=== PATIENT | male | born 1945 | race Caucasian/White ===

== ENCOUNTER 2018-02-04 10:49 | Outpatient (CLI) | payer MEDICARE, OTHER ==
[~2018-02-04] VITALS: Ht 193 cm; Wt 100.0 kg
--- NOTE | ~2018-02-04 | HEMODYNAMI ---
PATIENT:TERRY YUAN MEDICAL RECORD: [id number] : 41 LOCATION:[facility] ADMISSION DATE: 02/04/18 Generatedon:02/04/201815:29 Patient name: TERRY YUAN Patient #: [id number] SSN: : 1945 Date of study: 02/04/2018 Page: Of Hemodynamic Procedure Report Patient Data Patient Demographics Procedure consent was obtained First Name: TERRY Gender: Male Last Name: KWABENA : 1945 Middle Initial: R Age: 72 year(s) Patient #: [id number] Race: Unknown Additional ID: [id number] Contact details Address: [address] [place] [address] DRIVE State: [place] City: [place] Zip code: [address] Past Medical History Allergies: No known allergies Admission Admission Data Admission Date: 02/04/2018 Admission Time: 10:49 Lab Results Lab Result Date: 02/04/2018 Lab Result Time: 0:00 Biochemistry Name Units Result Min Max BUN mg/dl 12 --(-*--)-- 7 18 Creatinine mg/dl 1.2 --(---*)-- 0.6 1.3 CBC Name Units Result Min Max Hemoglobin g/dl 11.9 *-(----)-- 13.5 17.5 Procedure Procedure Types Cath Procedure Diagnostic Procedure LHC LHC w/Coronaries w/Grafts Sedation Charges Moderate Sedation up to 30 minutes PCI Procedure PTCA PTCA Initial Procedure Description Procedure Date Procedure Date: 02/04/2018 Procedure Start Time: 14:35 Procedure End Time: 15:26 Procedure Staff Name Function Srikanth Donaldson MD Performing Physician Rylnad Law RT Monitor Judy Nichole RT Scrub Arabella Read RN Nurse Procedure Data Cath Procedure Fluoroscopy Diagnostic fluoroscopy Total fluoroscopy Time: time: 15.2 min 15.2 min Diagnostic fluoroscopy Total fluoroscopy dose: dose: 1773 mGy 1773 mGy Contrast Material Contrast Material Type Amount (ml) Isovue 300 144 Entry Location Entry Primary Successful Side Size Upsize Upsize Entry Closure Succes sful Closure Location (Fr) 1 (Fr) 2 (Fr) Remarks Device Remarks Femoral Right 5 Fr 6 Fr Exoseal artery Short Estimated blood loss: 10 ml Diagnostic catheters Device Type Used For End Catheter Placement MULTIPACK JL 4.0 5Fr Procedure catheter MULTIPACK 3DRC 5Fr Procedure catheter MULTIPACK Pigtail 5 Fr Procedure catheter Procedure Complications No complications Procedure Medications Medication Administration Route Dosage Oxygen NC 2 l/min Lidocaine 2% added to field 20 Heparin Flush Bag added to field 2 bags (1000units/500ml NS) 0.9% NaCl I.V. 100 ml/hr Versed I.V. 1 mg Fentanyl I.V. 50 mcg Versed I.V. 1 mg Fentanyl I.V. 50 mcg Heparin Bolus I.V. 4000 units Integrilin (Bolus I.V. 9 ml 2mg/ml) Versed I.V. 1 mg Hemodynamics Rest HGB: 11.9 (g/dl) Heart Rate: 53 (bpm) Pressure Samples Time Site Value (mmHg) Purpose Heart Use Rate(bpm) 14:44 LV 159/9,13 Snapshot 57 14:45 AO 147/70(102) Pullback 63 14:45 LV 152/13,15 Pullback 63 Gradients Valve Time Site 1 Site 2 Mean SEP/DFP Peak To Heart Use (mmHg) (sec/min) Peak Rate (mmHg) (bpm) Aortic 14:45 LV AO 4 17 5 63 152/13,15 147/70(102) Calculations Valve P-P Mean Valve Index Valve Source Name Gradient Area Flow (cm2) Aortic 5 4 5 4 Snapshots Pre Cath Intra NCS Post Cath Vital Signs Time Heart Resp SPO2 etCO2 NIBP (mmHg) Rhythm Pain Sedation Rate (ipm) (%) (mmHg) Status Level (bpm) 14:32:46 50 15 100 33.7 178/93(154) NSR 0 (11) 10(A) , No pain 14:37:29 67 12 96 23.9 163/88(137) NSR 0 (11) 10(A) , No pain 14:42:14 60 14 97 0 157/87(131) NSR 0 (11) 10(A) , No pain 14:47:35 50 15 97 20 142/75(126) NSR 0 (11) 9(A) , No pain 14:52:20 61 13 98 25.4 146/75(125) NSR 0 (11) 9(A) , No pain 14:57:03 61 14 100 32.9 147/86(126) NSR 0 (11) 9(A) , No pain 15:01:45 60 14 98 11.9 144/84(126) NSR 0 (11) 9(A) , No pain 15:06:30 50 15 98 27.6 145/78(116) NSR 0 (11) 9(A) , No pain 15:11:06 48 14 99 26.9 131/74(103) NSR 0 (11) 10(A) , No pain 15:15:47 60 13 99 28.4 143/86(130) NSR 0 (11) 10(A) , No pain 15:20:32 50 99 28.4 148/79(113) NSR 0 (11) 10(A) , No pain 15:25:17 51 0 100 32.9 148/85(122) NSR 0 (11) 10(A) , No pain Medications Time Medication Route Dose Verified Delivered Reason Notes Effectiveness by by 14:23:37 Oxygen NC 2 Srikanth Buffie used for l/min St Nasim Read RN procedure 14:23:44 Lidocaine 2% added 20ml Srikanth Srikanth for local to vial [facility] anesthetic field MD [place] 14:23:50 Heparin Flush added 2 Srikanth Srikanth used for Bag to bags [facility] procedure (1000units/500ml field MD [place] NS) 14:23:59 0.9% NaCl I.V. 100 Srikanth Moie Per physician ml/hr St Nasim Read RN, MD 14:35:55 Fentanyl I.V. 50 Srikanth Buffie for sedation mcg [facility] Nasim Read RN, MD 14:36:49 Versed I.V. 1 mg Srikanth Buffie for sedation St Nasim Read RN, MD 14:45:39 Versed I.V. 1 mg Srikanth Buffie for sedation St Nasim Read RN, MD 14:45:43 Fentanyl I.V. 50 Srikanth Buffie for sedation mcg [facility] Nasim Read RN, MD 14:52:02 Heparin Bolus I.V. 4000 Srikanth Buffie for verifi ed units [facility] Nasim Read RN anticoagulation with dr MD talavera 14:53:12 Integrilin I.V. 9 ml Srikanth Bell for wasted 1 (Bolus 2mg/ml) St Nasim Read RN antiplatelet ml of MD therapy vial 14:57:47 Versed I.V. 1 mg Srikanth Bell for sedation St Nasim Read RN, MD Procedure Log Time Note 14:10:49 Arabella Read RN sent for patient. Start room use. 14:10:50 Time tracking: Regular hours (M-F 7:00 - 5:00) 14:10:53 Plan of Care:Hemodynamics will remain stable., Cardiac rhythm will remain stable., Comfort level will be maintained., Respiratory function will remain adequate., Patient/ family verbilizes understanding of procedure., Procedure tolerated without complication., Recovers from procedure without complications.. 14:10:54 Signed procedure consent form obtained from patient. 14:11:23 H&P Date Dictated: 01/08/2018 Within 30 days and on chart., H&P Addendum completed by physician on day of procedure. (MUST COMPLETE FOR ALL OUTPATIENTS). 14:13:36 Patient allergic to No known allergies 14:13:57 Lab Result : BUN 12 mg/dl 14:13:57 Lab Result : Hemoglobin 11.9 g/dl 14:13:57 Lab Result : Creatinine 1.2 mg/dl 14:17:50 Patient received from Pre/Post Procedure Room to [facility] Alert and oriented. Tansferred to table in Supine position. 14:17:51 Warm blankets applied, and ramin hugger turned on for patient comfort. 14:17:51 Correct patient and procedure confirmed by team. 14:17:52 ECG and BP/O2 sat monitors applied to patient. 14:23:37 Oxygen 2 l/min NC was administered by Arabella Read RN; used for procedure; 14:23:44 Lidocaine 2% 20ml vial added to field was administered by Srikanth Donaldson MD; for local anesthetic; 14:23:50 Heparin Flush Bag (1000units/500ml NS) 2 bags added to field was administered by Srikanth Donaldson MD; used for procedure; 14:23:59 0.9% NaCl 100 ml/hr I.V. was administered by Arabella Read RN; Per physician; 14:31:10 Vital chart was started 14:31:11 Baseline sample Acquired. 14:31:13 Rhythm: sinus rhythm 14:31:15 Full Disclosure recording started 14:31:15 Pre-procedure instructions explained to patient. 14:31:16 Pre-op teaching completed and patient verbalized understanding. 14:31:17 Family in waiting room. 14:31:21 Patient NPO since Breakfast. 14:31:24 Is the patient allergic to Iodine/contrast media? No. 14:31:26 Is patient on blood thinner?Yes 14:31:30 Patient diabetic? No. 14:31:35 Previous problem with sedation/anesthesia? No ? 14:31:47 Snore? Yes 14:31:47 Sleep apnea? No 14:31:49 Deviated septum? No 14:31:49 Opens mouth fully? Yes 14:31:51 Sticks out tongue? Yes 14:31:53 Airway obstruction? No ? 14:31:57 Dentures? Yes in tight 14:32:02 Pre procedure: right posterior tibial pulse 2+ Normal; easily identifiable; not easily obliterated 14:32:04 Patient pain scale 0/10 ?. 14:32:08 IV patent on arrival in left forearm with 0.9% NaCl at [facility] 14:32:10 Lab results completed and on chart. 14:32:12 Right groin area was prepped with chlora-prep and draped in sterile fashion 14:32:13 Alarms reviewed by R. N. 14:32:13 Sharps counted by scrub and verified by R.N. 14:32:15 Use device set Femoral Dx 14:32:16 ACIST Syringe (94749) opened to sterile field. 14:32:16 Bag Decanter (2002) opened to sterile field. 14:32:18 ACIST Hand Control (74407) opened to sterile field. 14:32:19 ACIST Manifold (70225) opened to sterile field. 14:32:20 Tegaderm 4 x 4 (1626W) opened to sterile field. 14:32:21 SHEATH Prelude 5Fr 0.035 (OKL-8F-87-035) opened to sterile field. 14:32:22 Medline Cath Pack ([id number]) opened to sterile field. 14:32:23 DIAGNOSTIC WIRE .035 260cm J wire (955218) opened to sterile field. 14:32:24 DIAGNOSTIC Multipack 5Fr catheter set (JL1486) opened to sterile field. 14:33:40 Physician arrived 14:33:41 --------ALL STOP TIME OUT------ 14:33:41 Final Timeout: patient, procedure, and site verified with staff and physician. All members of the team are in agreement. 14:33:42 Right groin site verified by team. 14:33:44 Physical assessment completed. ASA score P 2 - A patient with mild systemic disease as per Srikanth Donaldson MD. 14:33:46 Sedation plan: IV Moderate Sedation Medication:Versed, Fentanyl 14:35:50 Local anesthetic to right femoral artery with Lidocaine 2% by Srikanth Donaldson MD.INITIAL ACCESS ONLY 14:35:55 Fentanyl 50 mcg I.V. was administered by Arabella Read RN; for sedation; 14:36:45 Zero performed for pressure channel P1 14:36:49 Versed 1 mg I.V. was administered by Arabella Read RN; for sedation; 14:38:47 Procedure started. 14:38:58 A 5 Fr sheath was inserted into the Right Femoral artery 14:39:43 A MULTIPACK JL 4.0 5Fr catheter was advanced over the wire and used for Procedure. 14:41:12 Catheter exchanged over wire. 14:41:18 A MULTIPACK 3DRC 5Fr catheter was advanced over the wire and used for Procedure. 14:41:55 RCA angiography performed. 14:42:10 SVG to LAD angiography performed. 14:43:36 MAYES to LAD angiography performed. 14:43:45 Catheter exchanged over wire. 14:43:50 A MULTIPACK Pigtail 5 Fr catheter was advanced over the wire and used for Procedure. 14:44:56 LV gram done using PRATT 14:45:01 Injector settings: Ml/sec: 10, Volume: 20, 14:45:12 EF : 40 % 14:45:15 LV hemodynamics recorded. 14:45:26 Aortic Root visualized 14:45:39 Versed 1 mg I.V. was administered by Arabella Read RN; for sedation; 14:45:43 Fentanyl 50 mcg I.V. was administered by Arabella Read RN; for sedation; 14:47:30 SHEATH Prelude 6Fr 0.035 (HUD-7N-52-035) opened to sterile field. 14:47:41 INFLATOR Merit BasixCompak (HN4331) opened to sterile field. 14:47:45 WHISPER 300cm guide wire ([id number]) opened to sterile field. 14:48:53 Catheter removed. 14:48:59 Sheath upsized to a 6 Fr Short. 14:49:25 GUIDE 6FR JL 4.0 catheter (DQ1OT95) opened to sterile field. 14:49:34 6 Fr jl 4 guide catheter was inserted over the wire 14:50:30 Guide Catheter removed. unable to cannulate vessel. 14:50:38 GUIDE 6FR JL 5.0 catheter (AP2OR66) opened to sterile field. 14:52:02 Heparin Bolus 4000 units I.V. was administered by Arabella Read RN; for anticoagulation; verified with dr talavera 14:52:27 whisper wire advanced. 14:53:12 Integrilin (Bolus 2mg/ml) 9 ml I.V. was administered by Arabella Read RN; for antiplatelet therapy; wasted 1 ml of vial 14:55:51 Quick Combo opened to sterile field. 14:56:17 Quick combo pads placed on patients chest and back. 14:56:39 Wire removed. unable to get back-up support 14:56:42 Guide Catheter removed. unable to get back-up support 14:57:10 6 Fr jl 4 guide catheter was inserted over the wire 14:57:47 Versed 1 mg I.V. was administered by Arabella Read RN; for sedation; 14:57:54 Guide Catheter removed. unable to cannulate vessel. 14:58:48 GUIDE 6FR EBU 3.5 catheter ([id number]) opened to sterile field. 14:59:00 6 Fr ebu 3.5 guide catheter was inserted over the wire 14:59:34 whisper wire advanced. 15:00:54 Wire removed. damaged. 15:01:04 WHISPER 300cm guide wire ([id number]) opened to sterile field. 15:01:43 whisper wire advanced. 15:01:44 Wire advanced across lesion. 15:02:10 The INTEGRITY OTW 4.0 X 18 stent ([id number]) was advanced then removed because of failure to cross lesion 15:04:58 The EMERGE OTW 3.0 x 15 balloon ([id number]) was advanced and then removed because of failure to cross lesion 15:07:54 The EMERGE OTW 2.0 x 15 balloon ([id number]) was advanced and then removed because of failure to cross lesion 15:12:29 WHISPER 300cm guide wire ([id number]) opened to sterile field. 15:12:44 whisper wire advanced as a jacky wire. 15:13:33 Inflate balloon Inflation number: 1 A EMERGE OTW 1.5 x 15 balloon ([id number]) was prepped and advanced across the Prox CX, then inflated to 10 PETER for 0:30 (min:sec). 15:14:00 Wire removed. 15:14:37 Balloon removed over the wire. 15:14:39 Wire removed. 15:14:39 Guide catheter removed. 15:15:05 EXOSEAL 6Fr (EX600) opened to sterile field. 15:15:57 Procedure ended.(Physican Out) 15:16:05 Sheath removed intact; hemostasis achieved with Exoseal to the Right Femoral artery. 15:16:12 Fluoroscopy time 15.20 minutes. 15:16:18 Flurop Dose total: 1773 15:16:18 Fluoroscopy dose: 1773 mGy 15:16:31 Contrast amount:Isovue 300 144ml. 15:19:45 have pt restart warfarin today 15:21:37 Insertion/operative site no bleeding no hematoma. 15:21:40 Post-op/insertion site Right Femoral artery dressed using a 4 x 4 and Tegaderm. 15:21:46 Post right femoral artery:stable, soft, clean and dry 15:21:49 Post Procedure Pulses reassessed and unchanged 15:21:52 Post-procedure physical assessment completed. ASA score P 2 - A patient with mild systemic disease as per Srikanth Donaldson MD. 15:21:54 Post procedure rhythm: unchanged. 15:21:56 Estimated blood loss: 10 ml 15:21:57 Post procedure instruction explained to patient.Patient verbalizes understanding. 15:23:15 Patient needs reinforcement of post procedure teaching. 15:23:32 Procedure type changed to Cath procedure, Diagnostic procedure, LHC, LHC w/Coronaries w/Grafts, Sedation Charges, Moderate Sedation up to 30 minutes, PCI procedure, PTCA, PTCA Initial 15:26:13 Procedure and supply charges have been captured, reviewed, submitted and are correct. 15:26:19 Procedure Complication : No complications 15::22 Vital chart was stopped 15:26:23 See physician's report for complete and final results. 15:26:24 Report given to Pre/Post Procedure Room. 15::25 Patient transfered to Pre/Post Procedure Room with Stretcher. 15::26 Procedure ended. 15:: Full Disclosure recording stopped 15:26:36 End room use (Document Last) Intervention Summary Intervention Notes Time ActionType Lesion and Equipment Action# Pressure Duration Attributes Used 15:02:10 Discard INTEGRITY Stent OTW 4.0 X 18 stent ([id number]) 15:04:58 Discard EMERGE OTW Balloon 3.0 x 15 balloon ([id number]) 15:07:54 Discard EMERGE OTW Balloon 2.0 x 15 balloon ([id number]) 15:13:33 Inflate Prox CX EMERGE OTW 1 10 00:30 balloon 1.5 x 15 balloon ([id number]) Device Usage Item Name Manufacture Quantity Catalog Number Hospital Part Current Minimal Lot# / Charge Number Stock Stock Serial# Code ACIST Syringe Acist 1 52114 111552 526691 866505 20 (67249) [employer] Bag Decanter Microtek 1 2002S 344422 19528 297851 5 (2002S) Medical Inc. ACIST Hand Acist 1 96104 380772 780048 045763 5 Control (72791) [employer] Inc ACIST Manifold Acist 1 65682 169426 425511 830525 5 (66357) [employer] Inc Tegaderm 4 x 4 3M 1 1626W 966006 378091 520686 5 (1626W) SHEATH Prelude Merit 1 VPA-0L-35-035 365001 017134 212542 5 5Fr 0.035 Medical (HEB-5H-55-035) Medline Cath Cardinal 1 [id number] 334474 31496 481952 5 Pack Health ([id number]) DIAGNOSTIC WIRE [facility] 1 592426 545578 784314 664697 30 .035 260cm J wire (388922) DIAGNOSTIC Cardinal 1 YR6022 050359 09228 589400 30 Multipack 5Fr Health catheter set ([id number]) MULTIPACK JL Cardinal 1 980802 5 4.0 5Fr Health catheter MULTIPACK 3DRC Cardinal 1 885735 5 5Fr catheter Health MULTIPACK Cardinal 1 270289 5 Pigtail 5 Fr Health catheter SHEATH Prelude Merit 1 URE-0T-42-35 516363 5529285 778752 5 6Fr 0.035 Medical (JCQ-5W-90-035) INFLATOR Merit Merit 1 ZX9481 735105 912894 771277 15 [facility] (OS5587) WHISPER 300cm Arzola 3 [id number] 794393 491189 300779 5 guide wire Vascular ([id number]) GUIDE 6FR JL Medtronic 1 QF3PF94 138671 75840 775332 1 4.0 catheter (KO7MT56) GUIDE 6FR JL Medtronic 1 BZ4EN19 260450 23698 453509 1 5.0 catheter (GV2HI79) [employer]es 1 71558-668645 537451 189726 043302 5 GUIDE 6FR EBU Medtronic 1 IV7QMY59 330401 87838 011774 3 3.5 catheter (RQ4BDA26) INTEGRITY OTW Medtronic 1 [id number] 537952 449727 9 [id number] 4.0 X 18 stent ([id number]) EMERGE OTW 3.0 [place] 1 [id number] 771215 881037 830415 5 [id number] x 15 balloon Scientific ([id number]) EMERGE OTW 2.0 [place] 1 [id number] 567445 976498 349528 5 [id number] x 15 balloon Scientific ([id number]) EMERGE OTW 1.5 [place] 1 [id number] 952066 632208 777439 5 [id number] x 15 balloon Scientific ([id number]) EXOSEAL 6Fr Cardinal 1 EX600 502373 977803 301751 10 (EX600) Health Signature Audit [place] Stage Time Signature Unsigned Intra-Procedure 02/04/2018 Ryland Law 3:29:43 PM RT(R) Signatures Monitor : Ryland Law RT Signature : Date : Time : [place] [id number] [place] [address]
--- NOTE | ~2018-02-04 | OP ---
PATIENT NAME: TERRY GALLARDO MEDICAL RECORD: [id number] :41 LOCATION:D.CAT ADMISSION DATE: SURGEON: HIEN RENEE MD DATE OF OPERATION: 02/04/2018 PROCEDURE: Left heart catheterization, selective coronary angiography, right femoral artery approach. CATHETERS: A 5-Latvian sheath, 5/4 left and right Ghada, 5/4 pig. The procedure was well tolerated. The patient returned to the gallardo. Sheath removed. ExoSeal device placed. FINDINGS: Left ventriculography in 30 degrees PRATT view shows mild global hypokinesis with overall LV function reduced. Estimated EF 40%. CORONARY ANATOMY: LEFT MAIN: Left main is free of disease. LAD: Fills for a period of time then is totally occluded. CIRCUMFLEX: Left dominant system with a tight stenosis before takeoff of a large OM of 80% to 90%. RIGHT CORONARY ARTERY: The right coronary artery is a nondominant system. It basically is subtotaled and fills via right to right collaterals. Saphenous graft is diffusely to severely diseased saphenous graft to the LAD. No other grafts are noted. Selective MAYES injection was performed and this showed no attachment to any coronary arteries. After 5-Latvian sheath was exchanged for a 6-Latvian sheath, we attempted PTCA stenting to the left dominant circumflex. Despite going down to 1.5 balloon and jacky wire, we were unable to cross the lesion. Given the diffuse disease of the saphenous graft to the LAD as well as reasonable targets on the circumflex system, the procedure was stopped at this point for possible second coronary bypass grafting. TRANSINT:[id number] Voice Confirmation ID: [id number] DOCUMENT ID: [id number] HIEN RENEE MD at 0849 CC: [id number] DICTATION DATE: 02/04/18 1522 DIRECTOR PRESALES: 02/04/18 1617 DEP CLI 02/04/18 [place] [id number] [place] [id number]
[2018-02-04] MEDS ORDERED: BAYER CHEWABLE81 MG PO (11:19)
[2018-02-04] MEDS ORDERED: COUMADIN7.5 MG PO (11:20)
[2018-02-04] MEDS ORDERED: FISH OIL 1,0001 CA1 PO (11:20)
[2018-02-04] MEDS ORDERED: SYNTHROID112 MCG PO (11:20)
[2018-02-04 11:25] VITALS: BP 168/89; Ht 193 cm; Wt 100.0 kg
[2018-02-04 12:09] LABS: BASOPHILS 0.8 % (0-2); EOSINOPHILS 11.8 % (0-7); HEMATOCRIT 36.2 % (42.0-54.0); HEMOGLOBIN 11.9 g/dL (13.5-17.5); IMMATURE GRANULOCYTES 0.2 % (0-5); LYMPHOCYTES 25.7 % (15-50); MCHC 32.9 g/dL (31.0-37.0); MCV 88.3 fL (80.0-100.0); MEAN PLATELET VOLUME 9.3 fL (7.4-10.4); MONOCYTES 7.9 % (2-11); NEUTROPHILS 53.6 % (40-80); PLATELET COUNT 151 10x3/uL (130-400); RDW 13.8 % (11.5-14.5); WBC 4.8 10x3/uL (4.8-10.8)
[2018-02-04 12:17] LABS: INR 1.1 (0.85-1.17); PROTIME 13.8 SECONDS (11.6-15.0)
[2018-02-04 12:35] LABS: ANION GAP 9.2 mmol/L (8-16); CARBON DIOXIDE 28.8 mmol/L (21.0-32.0)
[2018-02-04 13:05] LABS: CALCIUM 8.9 mg/dL (8.5-10.1); CREATININE - SERUM 1.2 mg/dL (0.6-1.3)
== END 2018-02-04 17:45 | disposition home or self-care (01) ==
LOC: D.CATH 10:49
PROVIDERS: Internal Medicine Interventional Cardiology
DX: I25.119 Atherosclerotic heart disease of native coronary artery with unspecified angina pectoris (principal); I25.719 Atherosclerosis of autologous vein coronary artery bypass graft(s) with unspecified angina pectoris; I25.82 Chronic total occlusion of coronary artery; Z01.812 Encounter for preprocedural laboratory examination

== ENCOUNTER 2018-02-26 07:24 | Inpatient (IN) | payer MEDICARE, OTHER ==
[~2018-02-26] VITALS: Ht 193 cm; Wt 126.8 kg
--- NOTE | ~2018-02-26 | HP ---
PATIENT: TERRY YUAN MEDICAL RECORD: [id number] ACCOUNT: [id number] LOCATION:[facility] : 41 ADMISSION DATE: 02/26/18 HISTORY AND PHYSICAL EXAMINATION TERRY Root (73yo, M) ID# [id number]. Date/Time02/10/2018 11:33ULIPP68/21/194[facility] Dept.[facility]_[place] [facility] ClinicProviderRUBY APONTE MDInsuranceMed Primary: MEDICARE-[place] (MEDICARE) Insurance # : [id number] Referring Provider Name : MIKAELA CHEN Employer Name : NONE LISTED Med Secondary: AETNA (PPO) Insurance # : [id number] Policy/Group # : [id number] Employer Name : NONE LISTED Prescription: CMX - Member is eligible. Chief Complaint Coronary artery disease CAD-RE DO CABG (Dr. Penaloza) Patient's Care Team Referring Provider (): MIKAELA CHEN: [address] [place] [phone], , Armature Winder: HIEN RENEE MD Vitals BP:160/80 sitting L arm 02/10/2018 12:08 pm 164/86 sitting R arm 02/10/2018 12:09 pmBP Cuff Size:adult 02/10/2018 12:08 pm adult 02/10/2018 12:09 pmHR:56,reg 02/10/2018 12:09 pmHt:6 ft 4 in 02/10/2018 12:09 pmWt:218 lbs 02/10/2018 12:09 pmNotes:four months history of lightheadedness, fatigue. Some SOB with fatigue and lightheadedness. No chest pain. may work for an hour or longer before he has symptoms. 02/10/2018 12:12 pmBMI:26.5 02/10/2018 12:09 pmAllergies Reviewed Allergies LIURGNC-FQO-VHF REDUCTASE INHIBITORSMedications Reviewed Medications Aspir- enteredKathy Wilsonlevothyroxine 112 mcg uopxuf31/30/18 filledCaremarkwarfarin 5 mg alzcrt23/30/18 filledCaremarkProblems Reviewed Problems Coronary arteriosclerosis - Onset: 02/06/2018 Family History Reviewed Family History Social History Reviewed Social History Cardiology Smoking Status: Former smoker High Cholesterol: N High blood pressure: N Overweight: Y Obese: N Diabetes: N General stress level: Medium Surgical History Reviewed Surgical History HISTORY AND PHYSICAL [id number] TERRY YUAN CABG - 08/18/2000 Past Medical History Reviewed Past Medical History Coronary Artery Disease: Y - CABG x 1 2000 Hypothyroidism: Y - levothyroxine Documents for Discussion N/A Screening None recorded. HPI Fatigue Reported by patient. Quality: continuous Severity: normal sleep patterns; change in exercise habits; changes in normal activities Duration: symptoms lasting over 2 weeks Timing: worse; gradual Context: symptoms do not improve on weekends/vacations Modifying Factors: no new stressors in life; taking vitamins Associated Symptoms: no drug/alcohol withdrawal; no depression; no anxiety; no sleep disturbances; no snoring; periods of not breathing (apnea) have not been observed; no recent change in weight Notes: does lots of yard and home work symptoms have not worsened over the past several months, consistently requires 30 min or so of rest to recover when lightheadedness and fatigue set in referral for redo CABG, status post coronary bypass graft [address] Penaloza at [facility]. 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 Severe bilateral varicose veins, does not use elastic stockings ROS as noted in the HPI Physical Exam Patient is a 73-year-old male. Constitutional: General Appearance well nourished and developed and healthy-appearing. Level of Distress NAD. Ambulation ambulating normally. Cardiovascular: Apical Impulse not displaced or no thrill. Heart Auscultation no murmurs, rubs, or gallops and RRR. Arterial Pulses femoral 2+ bilateral. Edema no edema and varicosities; status post greater saphenous vein harvest left thigh, severe varicose veins below the knee on the left and moderate on the right, it easily de-compressible with elevation. Lungs: Repiratory Effort no dyspnea . Percussion no hyperresonance or dullness or flatness. Auscultation no wheezing, rhonchi, or rales / crackles and breathing sounds normal and good air movement. HISTORY AND PHYSICAL [id number] TERRY YUAN Abdomen: Bowl Sounds normal. Inspection and Palpation no tenderness or masses and soft. Musculoskeletal System: Gait And Stance normal gait and stance. Digits and Nails normal nails and no cyanosis. Joints, Bones, and Muscles normal strength and movement of all extremities. Neurologic: Cranial Nerves grossly intact. Sensation grossly intact. Lymph Nodes: Lymph Nodes no cervical LAD or supraclavicular LAD. Eyes: Lids and Conjunctivae no discharge or pallor and non-injected. Pupils PERRLA. Cornea grossly intact. EOM EOMI. Lens clear. Sclerae non-icteric. Neck: Neck no masses, enlarged lymph nodes, or carotid bruits and supple and trachea midline. Thyroid no enlargement or nodules and non-tender. Skin: Inspection and Palpation no rash, lesions, ulcers, jaundice, or abnormal nevi; healed midsternal scar. Assessment / Plan 1. Arteriosclerosis of coronary artery bypass graft I25.810: Atherosclerosis of coronary artery bypass graft(s) without angina pectoris 2. Coronary arteriosclerosis in [place] artery I25.10: Atherosclerotic heart disease of [place] coronary artery without angina pectoris 3. Generalized ischemic myocardial dysfunction I25.5: Ischemic cardiomyopathy 4. Venous insufficiency of leg I87.2: Venous insufficiency (chronic) (peripheral) Patient Instructions leg elevation 3 times a day for 45 minutes, compression hose after surgery Discussion Notes we discussed the rationale for redo coronary bypass graft, the alternatives, the risks, the benefits, and recovery. Need ultrasound evaluation of lower extremity veins stop Coumadin 5 days before surgery, check INR on preop Consent given RUBY APONTE MD at 1005 CC: [id number] DICTATION DATE: 02/10/18 1125 WAX COATING MACHINE TENDER: GAUTAM 02/13/18 1148 PRE [address] [place] [id number] [place] [address]
--- NOTE | ~2018-02-26 | HEMODYNAMI ---
PATIENT:TERRY YUAN MEDICAL RECORD: [id number] : 41 [facility] AD[facility]ION DATE: 02/27/18 Generatedon:03/10/201815:48 Patient name: TERRY YUAN Patient #: [id number] SSN: : 1945 Date of study: 03/10/2018 Page: Of Hemodynamic Procedure Report Patient Data Patient Demographics Procedure consent was obtained First Name: TERRY Gender: Male Last Name: KWABENA : 1945 [facility] Initial: R Age: 73 year(s) Patient #: [id number] Race: Unknown Additional ID: [id number] Contact details Address: [address] [place] [address] [address]IVE State: [place] City: [place] Zip code: [address] Past Medical History Allergies Allergen Reaction Date Comments Reported Statins 03/10/2018 Admission Admission Data Admission Date: 02/27/2018 Admission Time: 5:00 Room #: IZ[facility]A Lab Results Lab Result Date: 03/10/2018 Lab Result Time: 0:00 Biochemistry Name Units Result Min Max BUN mg/dl 68 --(----)-* 7 18 Creatinine mg/dl 2.6 --(----)-* 0.6 1.3 CBC Name Units Result Min Max Hemoglobin g/dl 9 *-(----)-- 13.5 17.5 Procedure Procedure Types Cath Procedure Diagnostic Procedure [facility] w/Coronaries w/Grafts Aortic Root Angiography Procedure Description Procedure Date Procedure Date: 03/10/2018 Procedure Start Time: 15:23 Procedure End Time: 15:46 Procedure Staff Name Function Srikanth Donaldson MD Performing Physician Judy Nichole RT Monitor Kanwal Castrejon RT Scrub Javy Franco RN Nurse Procedure Data Cath Procedure Fluoroscopy Diagnostic fluoroscopy Total fluoroscopy Time: 2.2 time: 2.2 min min Diagnostic fluoroscopy Total fluoroscopy dose: 404 dose: 404 mGy mGy Contrast Material Contrast Material Type Amount (ml) Isovue 300 66 Entry Location Entry Primary Successful Side Size Upsize Upsize Entry Closure Succes sful Closure Location (Fr) 1 (Fr) 2 (Fr) Remarks Device Remarks Femoral Left 5 Fr Exoseal artery Estimated blood loss: 5 ml Diagnostic catheters Device Type Used For End Catheter Placement MULTIPACK JL 4.0 5Fr Procedure catheter MULTIPACK Pigtail 5 Fr Procedure catheter Procedure Complications No complications Procedure Medications Medication Administration Route Dosage 0.9% NaCl I.V. 100 ml/hr Oxygen NC 4 l/min Heparin Flush Bag added to field 2 bags (1000units/500ml NS) Lidocaine 2% added to field 20 Hemodynamics Rest HGB: 9 (g/dl) Heart Rate: 77 (bpm) Snapshots Pre Cath Intra NCS Post Cath Vital Signs Time Heart Resp SPO2 etCO2 NIBP Rhythm Pain Sedation Rate (ipm) (%) (mmHg) (mmHg) Status Level (bpm) 15:13:41 78 21 92 0 102/70(84) NSR 0 (11) 10(A) , No pain 15:17:51 81 24 92 0 107/67(87) NSR 0 (11) 10(A) , No pain 15:21:55 79 18 87 0 100/74(82) NSR 0 (11) 10(A) , No pain 15:25:59 80 19 93 0 102/74(84) NSR 0 (11) 10(A) , No pain 15:30:04 81 24 92 0 100/74(87) NSR 0 (11) 10(A) , No pain 15:34:12 82 28 93 0 94/67(88) NSR 0 (11) 10(A) , No pain 15:39:11 85 26 92 0 Measuring NSR 0 (11) 10(A) , No pain 15:40:13 83 18 91 0 103/75(85) NSR 0 (11) 10(A) , No pain 15:44:20 84 24 88 0 101/72(87) NSR 0 (11) 10(A) , No pain Medications Time Medication Route Dose Verified Delivered Reason Notes Effe ctiveness by by 15:13:26 0.9% NaCl I.V. 100 Javy Javy Per ml/hr Joan oliva RN RN 15:13:41 Oxygen NC 4 Javy Javy Per l/min Joan oliva RN RN 15:13:53 Heparin Flush added 2 Javy Javy used for Bag to bags Joan Franco procedure (1000units/500ml field RN RN NS) 15:14:05 Lidocaine 2% added 20ml Javy Javy for local to vial Joan Franco anesthetic field RN plumbing engineer Log Time Note 14:55:04 Time tracking: Regular hours (M-F 7:00 - 5:00) 14:55:07 Plan of Care:Hemodynamics will remain stable., Cardiac rhythm will remain stable., Comfort level will be maintained., Respiratory function will remain adequate., Patient/ family verbilizes understanding of procedure., Procedure tolerated without complication., Recovers from procedure without complications.. 14:55:08 Signed procedure consent form obtained from patient. 14:55:12 Javy Franco RN sent for patient. Start room use. 15:00:26 Patient received from CVICU to CCL 2 Alert and oriented. Tansferred to table in Supine position. 15:00:27 Warm blankets applied, and ramin hugger turned on for patient comfort. 15:00:28 Correct patient and procedure confirmed by team. 15:00:28 ECG and BP/O2 sat monitors applied to patient. 15:12:41 Vital chart was started 15:12:43 Baseline sample Acquired. 15:12:48 Rhythm: sinus rhythm 15:12:49 Full Disclosure recording started 15:12:52 Pre-procedure instructions explained to patient. 15:12:53 Pre-op teaching completed and patient verbalized understanding. 15:12:54 Family in waiting room. 15:12:56 Patient NPO since Midnight. 15:13:23 Patient allergic to Statins 15:13:26 0.9% NaCl 100 ml/hr I.V. was administered by Javy Franco RN; Per physician; 15:13:27 Is the patient allergic to Iodine/contrast media? No. 15:13:31 Is patient on blood thinner?Yes 15:13:35 ACC The patient was administered the following blood thiners within the last 24 hours: ACCLovenox 15:13:39 Patient diabetic? Unknown. 15:13:41 Oxygen 4 l/min NC was administered by Javy Franco RN; Per physician; 15:13:43 Previous problem with sedation/anesthesia? Unknown ? 15:13:44 Snore? Unknown 15:13:45 Sleep apnea? Unknown 15:13:47 Deviated septum? Unknown 15:13:48 Opens mouth fully? Unknown 15:13:50 Sticks out tongue? Unknown 15:13:52 Airway obstruction? Unknown ? 15:13:53 Heparin Flush Bag (1000units/500ml NS) 2 bags added to field was administered by Javy Franco RN; used for procedure; 15:13:55 Dentures? Unknown ? 15:14:02 Pre procedure: right dorsailis pedis pulse Doppler 15:14:05 Lidocaine 2% 20ml vial added to field was administered by Javy Franco RN; for local anesthetic; 15:14:05 Patient pain scale 0/10 ?. 15:14:11 IV patent on arrival in right forearm with 0.9% NaCl at [facility]. 15:14:37 Lab Result : BUN 68 mg/dl 15:14:37 Lab Result : Hemoglobin 9 g/dl 15:14:37 Lab Result : Creatinine 2.6 mg/dl 15:16:57 Lab results completed and on chart. 15:17:04 Left groin area was prepped with chlora-prep and draped in sterile fashion 15:17:05 Alarms reviewed by R. N. 15:17:06 Sharps counted by scrub and verified by R.N. 15:17:08 --------ALL STOP TIME OUT------ 15:17:08 Final Timeout: patient, procedure, and site verified with staff and physician. All members of the team are in agreement. 15:17:10 Left groin site verified by team. 15:17:25 Physical assessment completed. ASA score P 3 - A patient with severe systemic disease as per Srikanth Donaldson MD. 15:17:29 Sedation plan: IV Moderate Sedation Medication:Versed, Fentanyl 15:19:26 Use device set Femoral Dx 15:19:27 ACIST Syringe (49382) opened to sterile field. 15:19:27 Bag Decanter () opened to sterile field. 15:19:29 ACIST Hand Control (32753) opened to sterile field. 15:19:29 ACIST Manifold (95226) opened to sterile field. 15:19:31 Tegaderm 4 x 4 (1626W) opened to sterile field. 15:19:37 Medline Cath Pack ([id number]) opened to sterile field. 15:19:38 DIAGNOSTIC WIRE .035 260cm J wire (314061) opened to sterile field. 15:19:39 DIAGNOSTIC Multipack 5Fr catheter set ([id number]) opened to sterile field. 15:19:40 SHEATH Prelude 5Fr 0.035 (HCS-2C-23-035) opened to sterile field. 15:23:22 Zero performed for pressure channel P1 15:23:50 Procedure started. 15:23:54 Local anesthetic to left femerol artery with Lidocaine 2% by Srikanth Donaldson MD.INITIAL ACCESS ONLY 15:25:08 A 5 Fr sheath was inserted into the Left Femoral artery 15::23 A MULTIPACK JL 4.0 5Fr catheter was advanced over the wire and used for Procedure. 15:26:07 RCA angiography performed. 15:27:05 SVG to RCA occluded. 15:27:44 SVG to LAD angiography performed. 15:30:52 NEW LAD SVG 15:30:56 Catheter removed. 15:31:11 A MULTIPACK Pigtail 5 Fr catheter was advanced over the wire and used for Procedure. 15:40:46 Aortic Root visualized 15:40:48 Catheter removed. 15:40:50 EXOSEAL 5Fr (EX500) opened to sterile field. 15:41:33 Sheath removed intact; hemostasis achieved with Exoseal to the Left Femoral artery. 15:42:11 Procedure ended.(Physican Out) 15:42:53 Fluoroscopy time 02.20 minutes. 15:42:59 Flurop Dose total: 404 15:42:59 Fluoroscopy dose: 404 mGy 15:43:41 Contrast amount:Isovue 300 66ml. 15:43:42 Sharps counted by scrub and verified by R.N. 15:43:45 Post-op/insertion site Left Femoral artery dressed using a 4 x 4 and Tegaderm. 15:43:53 Post left femerol artery:stable, soft, clean and dry 15:43:57 Post-procedure physical assessment completed. ASA score P 2 - A patient with mild systemic disease as per Srikanth Donaldson MD. 15:44:00 Post procedure rhythm: unchanged. 15:44:02 Estimated blood loss: 5 ml 15:46:00 Procedure type changed to Cath procedure, Diagnostic procedure, LHC, LHC w/Coronaries w/Grafts, Aortic Root Angiography 15:46:06 Post procedure instruction explained to patient.Patient verbalizes understanding. 15:46:07 Patient needs reinforcement of post procedure teaching. 15:46:30 Procedure and supply charges have been captured, reviewed, submitted and are correct. 15:46:32 Procedure Complication : No complications 15:46:34 Vital chart was stopped 15:46:35 See physician's report for complete and final results. 15:46:37 Report given to CVICU. 15:46:44 Patient transfered to CVICU with Bed. 15:46:46 Procedure ended. 15:46:46 Full Disclosure recording stopped 15:46:51 End room use (Document Last) Device Usage Item Name Manufacture Quantity Catalog Number Hospital Part Current M inimal Lot# / Charge Number Stock Stock Serial# Code ACIST Syringe Acist 1 72288 074894 068070 296659 2 0 (69478) Medical Systems [employer] Bag Decanter Microtek 1 2001S 435447 77838 698891 5 (2001S) Medical Inc. ACIST Hand Acist 1 59991 380635 450047 855924 5 Control (26920) Medical Systems Inc ACIST Manifold Acist 1 96514 109059 393473 133203 5 (59441) Medical Systems Inc Tegaderm 4 x 4 3M 1 1626W 640591 975269 174662 5 (1626W) Medline Cath Cardinal 1 [id number] 380426 62583 994146 5 Pack Health ([id number]) DIAGNOSTIC WIRE [facility] 1 863189 468559 126431 509025 3 0 .035 260cm J wire (740451) DIAGNOSTIC Cardinal 1 BE0879 016646 77641 963435 3 0 Multipack 5Fr Health catheter set (YS6883) SHEATH Prelude Merit 1 NZF-8D-86-035 579055 535794 026056 5 5Fr 0.035 Medical (UUY-4R-89-035) MULTIPACK JL Cardinal 1 624165 5 4.0 5Fr Health catheter MULTIPACK Cardinal 1 [id number] 5 Pigtail 5 Fr Health catheter EXOSEAL 5Fr Cardinal 1 EX500 101708 750075 735498 1 0 (EX500) Health Signature Audit [place] Stage Time Signature Unsigned Intra-Procedure 03/10/2018 Judy Nichole 3:48:38 PM RT(R) Signatures Monitor : Judy Nichole Signature : RT Date : Time : [facility] [address] [facility] [address]
--- NOTE | ~2018-02-26 | EC ---
PATIENT:TERRY YUAN DATE OF SERVICE: 02/27/18 SEX: M MEDICAL RECORD: [id number] DATE OF : 41 LOCATION:[place] [address] AGE OF PATIENT: 73 ADMISSION DATE: 02/27/18 REFERRING PHYSICIAN: INTERPRETING PHYSICIAN: TUNDE ADAME MD ECHOCARDIOGRAM REPORT ECHO CHARGES 4 ECHO COMPLETE Date: 03/07 CLINICAL DIAGNOSIS: ASSESS PERICARDIAL EFF/EF ECHOCARDIOGRAPHIC MEASUREMENTS (adult normal given) AC root (d.<3.7cm) 3.3 cm LV Septum d (<1.2 cm> 1.1 cm Valve Excursion 0.8 cm LV Septum (systole) 1.3 cm Left Atria (s.<4.0cm> 4.5 cm LVPW d(<1.2cm) 1.5 cm RV (d.<2.3cm) 5.3 cm LVPW (sytole) 1.6 cm LV diastole(<5.6CM) 6.8 cm MV E-F(>70mm/sec) cm LV systole 6.1 cm LVOT Diameter 2.0 cm MV exc.(>10mm) 1.9 cm Est.ejection fraction (50-75%) % DOPPLER: LVIT cm/sec A 74.0 cm/sec E 104 cm/sec LA cm/sec RVSP 28 mmHg LVOT 75 cm/sec AOP1/2T m/s Asc. Ao 80 cm/sec RVOT cm/sec RA cm/sec PA cm/sec AV Gradient Peak 2.56 mmHg AV Mean 1.33 mmHg AV Area 2.0 cm MV Gradient Peak 4.82 mmHg MV Mean 1.70 mmHg MV Area cm COMMENTS: Software Quality Automation Engineer: Crow JOSEPH Medical Leader: 1 Dr. Adame TAPE# PACS Pericardial Effusion N DATE OF SERVICE: 03/07/2018 FINDINGS: 1. Left ventricular chamber size is moderately dilated. Left ventricular systolic function is markedly reduced. Overall ejection fraction estimated at 20%. Definite hypokinesis of the anterior apex. 2. Left atrium is enlarged at 4.5 cm. Right atrium and right ventricle chamber sizes were as well moderately dilated. 3. Valvular structures have normal structure and motion. 4. Doppler interrogation reveals elnl-cu-kyfoitoi mitral regurgitation, mild ECHOCARDIOGRAM REPORT [id number] TERRY YUAN tricuspid regurgitation, no other valvular insufficiency or stenosis. Pulmonary systolic pressure is preserved at 28 mmHg. 5. No evidence of pericardial effusion or left ventricular thrombus. TRANSINT:[id number] Voice Confirmation ID: [id number] DOCUMENT ID: [id number] TUNDE ADAME MD at 1325 CC: [id number] DICTATION DATE: 03/08/18 1107 EMPLOYEE COUNSELOR: 03/08/18 1145 ADM IN [facility] [address] [place] [id number]
--- NOTE | ~2018-02-26 | TEE ---
PATIENT:TERRY YUAN MEDICAL RECORD: [id number] LOCATION:[place] [address] AGE OF PATIENT: 73 ADMISSION DATE: 02/27/18 SEX: M REFERRING PHYSICIAN: INTERPRETING PHYSICIAN: TUNDE MELENDEZ MD TRANSESOPHAGEAL ECHOCARDIOGRAM Date: 02/27/18 SLY CHARGE Y INDICATIONS: CABG PREMEDICATIONS: PATIENT'S RESPONSE PROCEDURE DOPPLER MEASUREMENTS: LVIT LA PA RA LVOT RVOT Asc. Ao AV Gradient Peak AV Mean AV Area MV Gradient Peak MV Mean MV Area INTERPRETATION: LVd: 5.8 cm LVs: 4.2 cm Doppler: 2-D: COLOR FLOW DOPPLER NORMAL SALINE STUDY: MISCELLANOUS: DIAGNOSIS: PLAN: Trailer Sections Assembler:3 Dr. Corrales Municipal Maintenance Worker: Rodrigue JOYNER COMMENTS: DATE OF SERVICE: PROCEDURE: Transesophageal echo evaluation of valvular structures during bypass surgery. FINDINGS: 1. Left ventricular chamber size is within normal limits. Left ventricular systolic function is mildly reduced, overall ejection fraction estimated at 40%. 2. Left atrium, right atrium, and right ventricle chamber sizes are mildly TRANSESOPHAGEAL ECHOCARDIOGRAM REPORT [id number] TERRY YUAN dilated. 3. Valvular structures have normal structure and motion. 4. Doppler interrogation reveals mild mitral regurgitation, no other valvular insufficiency or stenosis. 5. No evidence of pericardial effusion or left ventricular thrombus. TRANSINT:[id number] Voice Confirmation ID: [id number] DOCUMENT ID: [id number] at 1230 CC: [id number] DICTATION DATE: 03/02/18 0945 ASSISTANT PROFESSOR OF ARCHAEOLOGY: 03/02/18 1158 ADM IN [place] [address] [place] [address]
--- NOTE | ~2018-02-26 | OP ---
PATIENT NAME: TERRY YUAN MEDICAL RECORD: [id number] :43 LOCATION:D.CVI DIfrahCV07 ADMISSION DATE:02/27/18 SURGEON: HARLAN APONTE MD DATE OF OPERATION: 02/27/2018 SURGEON: Harlan Aponte MD ASSISTANTS: CELI Pina MD and TANVI Pack OPERATION PERFORMED: 1. Reentry sternotomy. 2. Coronary artery bypass graft times 3 (reverse saphenous vein from aorta to LAD, aorta to obtuse marginal, aorta to posterior descending artery). 3. Endoscopic saphenous vein harvest, right leg. PREOPERATIVE DIAGNOSIS: Coronary artery disease, status post coronary artery bypass graft. POSTOPERATIVE DIAGNOSIS: Coronary artery disease, status post coronary artery bypass graft. ANESTHESIA: General endotracheal anesthesia. ESTIMATED BLOOD LOSS: Total. TRANSFUSIONS: 4 FFP, 2 platelets, 2 packed red blood cells. COMPLICATIONS: Coagulopathy. CONDITION: Stable. DISPOSITION: CV ICU. SPECIMENS: None. PROCEDURE FINDINGS: 1. Large caliber but good quality greater saphenous vein from the right thigh endoscopically, an open harvest in the right lower leg. 2. Dense intrapericardial adhesions requiring placement on cardiopulmonary bypass to dissect them out. The old grafts were left intact. 3. The LAD beyond the old vein graft was a 2.0-mm vessel with severe disease. 4. Obtuse marginal was a 2.5 mm vessel. 5. Posterior descending artery 1.5 mm vessel, this is a branch of the circumflex. The distal right coronary artery was small and not grafted. OPERATIVE INDICATION: Coronary artery disease of vein grafts and sun'aq vessel, unsuccessful percutaneous coronary intervention of the circumflex. PROCEDURE IN DETAIL: The patient was brought to the operating suite. General anesthesia was obtained, the patient was prepped and draped. Endoscopic saphenous vein harvest of the right thigh was performed. Side branches were divided with electrocautery. Lower leg open harvest was performed. Side branches were clipped. The vessel was ligated proximally and distally and removed. Side branches were tied and made ready for anastomosis. At the right groin, incision had been made to divide the proximal portion of the greater OPERATIVE REPORT [id number] TERRY YUAN saphenous vein and the right common femoral artery was dissected out in case it was needed for cardiopulmonary bypass. The old median sternotomy incision was incised. Subcutaneous tissue divided with electrocautery. The wires were untwisted and pulled to either side. Oscillating sternal saw was used after direct finger palpation from above about 8 cm and from below about 10-12 cm inside the sternal table, leaving the sternal wires intact to protect the heart. Then, the wires were removed. Remainder of the bone was divided and careful working inside the heart, freed the heart from the inner sternal table. The right pleural cavity was entered. Left pleural cavity was not entered. The internal mammary was not violated. The aorta was dissected up behind the innominate vein and a site for proximal cannulation was made and the right atrium was dissected free. Attempts to go further across the left were unsuccessful due to hypotension. Therefore, heparin was given. Aorta was cannulated, dual stage venous cannula was inserted and after activated clotting time was appropriately elevated, the patient was placed on cardiopulmonary bypass to decompress the heart. Remainder of the heart was dissected out. The flow in the internal mammary to circumflex graft was left intact and after this graft was taken down, it was occluded with a soft gel Bulldog during the remainder of the cardiopulmonary bypass time. The old saphenous vein graft to the LAD was left intact, but careful not to touch this graft. The aorta was dissected out. The patient was cooled. Crossclamp was placed. Retrograde cardioplegic cannula had been inserted earlier and cardioplegia was given antegrade and then retrograde and this was repeated at 15 to 20 minutes intervals during the crossclamp time. Distal anastomosis was performed in a standard technique, proximal anastomosis in a single cross-clamp technique. Aortic root was deaired and flow was restored. The proximal and distal anastomotic sites were inspected and there was no bleeding. The patient was rewarmed with cardiopulmonary bypass and was stable. The patient was decannulated. Initially paced atrioventricularly and then later in a sinus rhythm and sinus tachycardia. The patient had coagulopathy consistent with a long pump run and dissection out of the old chest as well as significant bleeding from the edges of the sternum, which was controlled later with FloSeal and once hemostasis was ensured, chest tubes were placed. The sternum was closed with wires. Fascia was closed. Subcutaneous tissue was closed. Skin was closed. Dermabond was placed. The needle and sponge counts were reported correct and the patient was taken to the ICU in stable condition. TRANSINT:[id number] Voice Confirmation ID: [id number] DOCUMENT ID: [id number] HARLAN APONTE MD at 0848 CC: [id number] DICTATION DATE: 02/27/18 1654 TRUCK RENTAL CLERK: 02/27/18 1756 ADM IN [place] [id number] [place] [id number]
--- NOTE | ~2018-02-26 | OP ---
PATIENT NAME: TERRY YUAN MEDICAL RECORD: [id number] :43 LOCATION:[facility]CV07 ADMISSION DATE:02/27/18 SURGEON: HIEN RENEE MD DATE OF OPERATION: 03/10/2018 PROCEDURE: Left heart catheterization, selective coronary angiography, left femoral artery approach. CATHETERS: A 5-Kinyarwanda sheath, pigtail catheter, JR catheter. The procedure was well tolerated. The patient was returned to the ICU. FINDINGS: Left ventriculography not performed due to dye load. Aortic root injection. This was done for location of the graft. This showed patent saphenous graft to the LAD only. SAPHENOUS GRAFT TO LAD: This was patent throughout its course. [place] RIGHT: This is a nondominant right that is totally occluded, fills via right to right collaterals. IMPRESSION: Patent saphenous graft to LAD. TRANSINT:[id number] Voice Confirmation ID: [id number] DOCUMENT ID: [id number] HIEN RENEE MD at 1505 CC: [id number] DICTATION DATE: 03/10/18 1555 FELT COVERER: 03/10/18 1605 DIS IN 03/13/18 [facility] [address] [place] [address]
--- NOTE | ~2018-02-26 | CN ---
PATIENT NAME:TERRY YUAN MEDICAL RECORD: [id number] : 41 LOCATION:[id number] ADMIT DATE: 02/27/18 ACCOUNT: [id number] CONSULTING PHYSICIAN: ELIDA CHEN MD REFERRING PHYSICIAN: RUBY APONTE MD DATE OF CONSULTATION: 03/06/2018 ADMITTING PHYSICIAN: Dr. Darryl Pina. REASON FOR CONSULTATION: Postoperative hypotension, nausea and vomiting. HISTORY OF PRESENT ILLNESS: The patient is a 73-year-old male who is referred for angina pectoris. He underwent outpatient cardiac catheterization that showed multivessel disease. He underwent CABG per Dr. Ruby Aponte. Postoperatively, he has had a slow recovery. He has remained hypotensive, mildly anemic, and has had orthostatic nausea and vomiting. He has received transfusion. He has had no diarrhea. 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 History of gastric ulcer, paroxysmal atrial fibrillation - postoperative, acute ID in 2000, osteoarthritis, colon polyps, and history of angioplasty. PAST SURGICAL HISTORY: Angioplasty, CABG remotely and now acutely and bilateral shoulder surgery, left total knee replacement in 2012, cholecystectomy, appendectomy, EGD, and colonoscopy. ALLERGIES: KUNAL INHIBITORS, ARBS CAUSING DIZZINESS AND COUGH. CRESTOR AND LIPITOR, CAUSING MUSCLE PAIN. FAMILY HISTORY: Father of stroke. Mother had lung cancer. History of stroke in his family with a sister. SOCIAL HISTORY: Remote smoker, never used smokeless tobacco. Does use alcohol very little. HOME MEDICATIONS: Aspirin 81 mg a day, Coumadin 7.5 mg daily, levothyroxine 112 mcg q.a.m., omega 3 fish oil 1 capsule daily. CURRENT MEDICATIONS: Noted in OCT. REVIEW OF SYSTEMS: GENERAL: He has been fatigued postoperatively. Had poor appetite. HEENT: No recent visual change, sinus congestion, or sore throat. Does have hearing difficulty. RESPIRATORY: Mild shortness of breath on exertion. Has intermittent cough as well, nonproductive. CARDIAC: No palpitations. GENITOURINARY: He has anterior chest wall pain currently from the CABG. Minimal peripheral edema. VITAL SIGNS: His blood pressure has been low. ENDOCRINE: Denies polyuria, polydipsia, heat or cold intolerance. NEUROLOGIC: No prior history of stroke, TIA, vascular headaches or seizures. INTEGUMENT: No rash or itching. CONSULT REPORT [id number] YUAN,TERRY Demarco PSYCHIATRIC: Denies depressed mood. GENITOURINARY: Nocturia once nightly. PHYSICAL EXAMINATION: VITAL SIGNS: His pulse is 75 and regular, respirations are 16, blood pressure 95/60, pulse ox is 95%. HEENT: Eyes are clear. Palpebral conjunctivae are pale. Oropharynx unremarkable. NECK: No bruits. CHEST: Distant breath sounds without wheeze or rales. HEART: Regular rate and rhythm, anterior sternotomy scar is healing. ABDOMEN: Soft, nontender throughout. EXTREMITIES: Show 2+ bipedal and 1+ pretibial edema of the knees bilaterally. NEUROLOGICAL: Oriented to person, place, and time. Cranial nerves grossly intact. Gait: Somewhat unsteady upon standing but is able to ambulate. No localizing motor or sensory deficits were appreciated. DIAGNOSTIC DATA: Shows a white count 13,400, H&H of 9.1 and 27.8, platelet count 117,000. Chemistry: Amylase and lipase are 40 and 169. TSH is 0.87, T4 is 1.48, mildly elevated. Liver functions are normal. AST, ALT elevated at 936 and 985 respectively. Bilirubin is 2.37, direct is 1.25. Glucose is 140, BUN and creatinine were 24 and 1.8. IMAGING: Chest x-ray reveals postoperative sternotomy changes. Lungs are hyperinflated, basilar atelectasis, and small bilateral pleural effusions were noted. No pneumothorax. ASSESSMENT: Status post coronary artery bypass graft for angina pectoris, critical illness myopathy, hypotension - worse upon standing, nausea and vomiting - worse upon standing, Raynaud disease, anemia - postoperative. The patient has a history of peptic ulcer disease but no hematochezia postoperative. He has also had prior cholecystectomy. He has had Raynaud's in the past and is worse postoperative possibly because of his anemia and hypotension. PLAN: We would like to hold oral iron because of his nausea and consider changing on amiodarone to Multaq to lower side effects (I discussed with Dr. Ken). Check KATJA, H. pylori, and liver function. Stool for occult blood. He has seen Dr. Kathleen in the past and we will discuss with Dr. Pina, GI consultation. TRANSINT:[id number] Voice Confirmation ID: [id number] DOCUMENT ID: [id number] ELIDA CHEN MD at 0747 CC: [id number] DICTATION DATE: 03/09/18608 CAR RECORD CLERK: 03/09/18 0735 ADM IN [place] [address] [place] [address]
[~2018-02-26 07:24] MED LIST: BAYER CHEWABLE81 MG PO; COUMADIN7.5 MG PO; FISH OIL 1,0001 CA1 PO; SYNTHROID112 MCG PO
[2018-02-26 08:54] LABS: APTT 31.4 SECONDS (22.8-39.4)
[2018-02-26 08:55] LABS: INR 1.21 (0.85-1.17); PROTIME 14.9 SECONDS (11.6-15.0)
[2018-02-26 09:11] LABS: APPEARANCE HAZY (CLEAR); BACTERIA FEW /hpf (NONE SEEN); BILIRUBIN NEGATIVE (NEGATIVE); COLOR DK YELLOW (YELLOW); EPITHELIAL CELLS OCC /hpf (0-5); GLUCOSE NEGATIVE (NEGATIVE); KETONE NEGATIVE (NEGATIVE); MUCUS <1+ /lpf (NONE SEEN); NITRITE NEGATIVE (NEGATIVE); PROTEIN TRACE mg/dL (NEGATIVE); RED CELLS - URINE 0-5 /hpf (0-5); SPECIFIC GRAVITY 1.015 (1.005-1.020); WHITE CELLS - URINE RARE /hpf (0-5)
[2018-02-26 09:12] LABS: HYALINE CAST 0-5 /lpf (NONE SEEN)
[2018-02-27] VITALS (33 sets, daily range): BP systolic 90–144; BP diastolic 55–89; BMI 26.2; BMI 27.4
[2018-02-27 05:37] LABS: BASOPHILS 1.2 % (0-2); EOSINOPHILS 9.6 % (0-7); HEMATOCRIT 40.3 % (42.0-54.0); HEMOGLOBIN 13.1 g/dL (13.5-17.5); IMMATURE GRANULOCYTES 0.3 % (0-5); LYMPHOCYTES 29.2 % (15-50); MCH 29.4 pg (26.0-34.0); MCHC 32.5 g/dL (31.0-37.0); MCV 90.4 fL (80.0-100.0); MEAN PLATELET VOLUME 10.2 fL (7.4-10.4); MONOCYTES 8.1 % (2-11); NEUTROPHILS 51.6 % (40-80); RBC 4.46 10x6/uL (4.20-6.10); WBC 5.9 10x3/uL (4.8-10.8)
[2018-02-27 05:38] LABS: PLATELET COUNT 185 10x3/uL (130-400)
[2018-02-27 06:00] LABS: ALBUMIN 3.9 g/dL (3.4-5.0); ANION GAP 11.8 mmol/L (8-16); BILIRUBIN - TOTAL 0.93 mg/dL (0.2-1.3); CALCIUM 8.8 mg/dL (8.5-10.1); CARBON DIOXIDE 27.5 mmol/L (21.0-32.0); CREATININE - SERUM 1.3 mg/dL (0.6-1.3); POTASSIUM - SERUM 4.3 mmol/L (3.5-5.1); PROTEIN - SERUM 7.5 g/dL (6.4-8.2)
[2018-02-27 06:06] LABS: PHOSPHOROUS 2.7 mg/dL (2.5-4.9); T4 THYROXIN - FREE 1.48 ng/dL (0.76-1.46); THYROID STIMULATING HORMONE 0.87 uIU/mL (0.36-3.74); URIC ACID 6.3 mg/dL (2.6-7.2)
[2018-02-27 15:47] LABS: HEMATOCRIT 27.3 % (42.0-54.0); HEMOGLOBIN 9.1 g/dL (13.5-17.5); MCH 29.4 pg (26.0-34.0); MCHC 33.3 g/dL (31.0-37.0); MCV 88.3 fL (80.0-100.0); MEAN PLATELET VOLUME 8.7 fL (7.4-10.4); RBC 3.09 10x6/uL (4.20-6.10); RDW 13.8 % (11.5-14.5); WBC 8.4 10x3/uL (4.8-10.8)
[2018-02-27 15:59] LABS: APTT 43.6 SECONDS (22.8-39.4); INR 1.97 (0.85-1.17); PROTIME 21.8 SECONDS (11.6-15.0)
[2018-02-27 16:02] LABS: CARBON DIOXIDE 21.6 mmol/L (21.0-32.0); CHLORIDE - SERUM 108 mmol/L (98-107); POTASSIUM - SERUM 4.4 mmol/L (3.5-5.1); SODIUM 143 mmol/L (136-145); UREA NITROGEN 12 mg/dL (7-18)
[2018-02-27 16:03] LABS: CALC OSMOLALITY 289 mosm/kg (275-300); CALCIUM 6.4 mg/dL (8.5-10.1); CREATININE - SERUM 0.9 mg/dL (0.6-1.3); GLUCOSE 190 mg/dL (74-106); eGFR NON AFRICAN AMERICAN 87 mL/min (90-120)
[2018-02-27 18:10] LABS: BASOPHILS 0.2 % (0-2); EOSINOPHILS 0.6 % (0-7); HEMATOCRIT 26.6 % (42.0-54.0); IMMATURE GRANULOCYTES 0.4 % (0-5); LYMPHOCYTES 12.3 % (15-50); MCH 29.6 pg (26.0-34.0); MCHC 33.8 g/dL (31.0-37.0); MCV 87.5 fL (80.0-100.0); MEAN PLATELET VOLUME 8.9 fL (7.4-10.4); NEUTROPHILS 74.5 % (40-80); PLATELET COUNT 104 10x3/uL (130-400); RBC 3.04 10x6/uL (4.20-6.10); RDW 13.8 % (11.5-14.5); WBC 10.8 10x3/uL (4.8-10.8)
[2018-02-27 18:17] LABS: PROTIME 17.9 SECONDS (11.6-15.0)
[2018-02-27 18:21] LABS: INR 1.53 (0.85-1.17)
[2018-02-27 18:25] LABS: ALKALINE PHOSPHATASE 33 U/L (46-116); ALT (SGPT) 10 U/L (10-68); BILIRUBIN - TOTAL 1.36 mg/dL (0.2-1.3); CALC OSMOLALITY 289 mosm/kg (275-300); CARBON DIOXIDE 24.6 mmol/L (21.0-32.0); CHLORIDE - SERUM 110 mmol/L (98-107); GLUCOSE 193 mg/dL (74-106); POTASSIUM - SERUM 4.1 mmol/L (3.5-5.1); PROTEIN - SERUM 3.9 g/dL (6.4-8.2); SODIUM 143 mmol/L (136-145); UREA NITROGEN 13 mg/dL (7-18); eGFR NON AFRICAN AMERICAN 77 mL/min (90-120)
[2018-02-27 20:10] LABS: BASOPHILS 0.3 % (0-2); EOSINOPHILS 0.1 % (0-7); HEMATOCRIT 28.3 % (42.0-54.0); HEMOGLOBIN 9.4 g/dL (13.5-17.5); IMMATURE GRANULOCYTES 0.6 % (0-5); LYMPHOCYTES 9.3 % (15-50); MCH 29.1 pg (26.0-34.0); MCHC 33.2 g/dL (31.0-37.0); MCV 87.6 fL (80.0-100.0); MEAN PLATELET VOLUME 9.4 fL (7.4-10.4); MONOCYTES 11.1 % (2-11); NEUTROPHILS 78.6 % (40-80); RBC 3.23 10x6/uL (4.20-6.10); RDW 13.9 % (11.5-14.5)
[2018-02-27 20:12] LABS: PLATELET COUNT 128 10x3/uL (130-400)
[2018-02-27 20:19] LABS: ANION GAP 16.7 mmol/L (8-16); CALCIUM 7.8 mg/dL (8.5-10.1); CARBON DIOXIDE 24.3 mmol/L (21.0-32.0); CREATININE - SERUM 1.1 mg/dL (0.6-1.3)
[2018-02-28] VITALS (79 sets, daily range): BP systolic 91–129; BP diastolic 49–71; BMI 28.1
[2018-02-28 04:46] LABS: HEMATOCRIT 26.6 % (42.0-54.0); HEMOGLOBIN 8.9 g/dL (13.5-17.5); MCH 29.5 pg (26.0-34.0); MCHC 33.5 g/dL (31.0-37.0); MCV 88.1 fL (80.0-100.0); MEAN PLATELET VOLUME 9.4 fL (7.4-10.4); RBC 3.02 10x6/uL (4.20-6.10); RDW 14.1 % (11.5-14.5)
[2018-02-28 04:57] LABS: INR 1.34 (0.85-1.17); PROTIME 16.1 SECONDS (11.6-15.0)
[2018-02-28 05:01] LABS: ALBUMIN 2.2 g/dL (3.4-5.0); ANION GAP 10.4 mmol/L (8-16); BILIRUBIN - TOTAL 0.74 mg/dL (0.2-1.3); CARBON DIOXIDE 28.2 mmol/L (21.0-32.0); POTASSIUM - SERUM 3.6 mmol/L (3.5-5.1); PROTEIN - SERUM 4.2 g/dL (6.4-8.2)
[2018-02-28 05:10] LABS: CREATININE - SERUM 1.6 mg/dL (0.6-1.3)
[2018-03-01] VITALS (64 sets, daily range): BP systolic 81–147; BP diastolic 46–94
[2018-03-01 05:26] LABS: HEMATOCRIT 21.6 % (42.0-54.0); MCH 29.1 pg (26.0-34.0); MCHC 32.9 g/dL (31.0-37.0); MCV 88.5 fL (80.0-100.0); MEAN PLATELET VOLUME 9.8 fL (7.4-10.4); RBC 2.44 10x6/uL (4.20-6.10); RDW 14.4 % (11.5-14.5); WBC 10.3 10x3/uL (4.8-10.8)
[2018-03-01 05:28] LABS: HEMOGLOBIN 7.1 g/dL (13.5-17.5)
[2018-03-01 05:45] LABS: ALBUMIN 2.1 g/dL (3.4-5.0); ANION GAP 9.7 mmol/L (8-16); BILIRUBIN - TOTAL 0.59 mg/dL (0.2-1.3); CALCIUM 7.4 mg/dL (8.5-10.1); CARBON DIOXIDE 30.1 mmol/L (21.0-32.0); CREATININE - SERUM 1.2 mg/dL (0.6-1.3); POTASSIUM - SERUM 3.8 mmol/L (3.5-5.1); PROTEIN - SERUM 4.5 g/dL (6.4-8.2)
[2018-03-01 06:48] LABS: PLATELET ESTIMATE DECREASED; PLATELET MORPHOLOGY NO PLT CLUMPS SEEN
[2018-03-02] VITALS (30 sets, daily range): BP systolic 87–111; BP diastolic 48–75
[2018-03-02 05:53] LABS: HEMATOCRIT 22.2 % (42.0-54.0); MCH 29.1 pg (26.0-34.0); MCHC 32.4 g/dL (31.0-37.0); MCV 89.9 fL (80.0-100.0); MEAN PLATELET VOLUME 10.5 fL (7.4-10.4); RBC 2.47 10x6/uL (4.20-6.10); RDW 14.2 % (11.5-14.5); WBC 9.1 10x3/uL (4.8-10.8)
[2018-03-02 05:54] LABS: HEMOGLOBIN 7.2 g/dL (13.5-17.5)
[2018-03-02 06:07] LABS: ALBUMIN 2.1 g/dL (3.4-5.0); BILIRUBIN - TOTAL 0.77 mg/dL (0.2-1.3); CALCIUM 7.3 mg/dL (8.5-10.1); CARBON DIOXIDE 30.7 mmol/L (21.0-32.0); CREATININE - SERUM 1.2 mg/dL (0.6-1.3); PROTEIN - SERUM 4.8 g/dL (6.4-8.2)
[2018-03-02 06:18] LABS: ANION GAP 8.5 mmol/L (8-16); POTASSIUM - SERUM 5.2 mmol/L (3.5-5.1)
[2018-03-03] VITALS (24 sets, daily range): BP systolic 92–118; BP diastolic 59–85
[2018-03-03 06:27] LABS: MCH 28.9 pg (26.0-34.0); MCHC 32.6 g/dL (31.0-37.0); MCV 88.6 fL (80.0-100.0); MEAN PLATELET VOLUME 10.9 fL (7.4-10.4); RDW 14.6 % (11.5-14.5); WBC 9.9 10x3/uL (4.8-10.8)
[2018-03-03 06:42] LABS: HEMATOCRIT 27.9 % (42.0-54.0); HEMOGLOBIN 9.1 g/dL (13.5-17.5); PLATELET COUNT 65 10x3/uL (130-400); RBC 3.15 10x6/uL (4.20-6.10)
[2018-03-03 06:59] LABS: ALBUMIN 2.2 g/dL (3.4-5.0); BILIRUBIN - TOTAL 1.01 mg/dL (0.2-1.3); CALCIUM 7.6 mg/dL (8.5-10.1); CARBON DIOXIDE 30.1 mmol/L (21.0-32.0); CREATININE - SERUM 1.2 mg/dL (0.6-1.3); PROTEIN - SERUM 5.3 g/dL (6.4-8.2)
[2018-03-03 07:00] LABS: ANION GAP 8.8 mmol/L (8-16); POTASSIUM - SERUM 3.9 mmol/L (3.5-5.1)
[2018-03-03 07:35] LABS: PLATELET ESTIMATE DECREASED
[2018-03-04] VITALS (23 sets, daily range): BP systolic 88–111; BP diastolic 56–72
[2018-03-04 06:26] LABS: HEMATOCRIT 28.2 % (42.0-54.0); HEMOGLOBIN 9.3 g/dL (13.5-17.5); MCH 29.3 pg (26.0-34.0); MEAN PLATELET VOLUME 11.7 fL (7.4-10.4); RBC 3.17 10x6/uL (4.20-6.10); RDW 14.4 % (11.5-14.5)
[2018-03-04 06:44] LABS: WBC 12.7 10x3/uL (4.8-10.8)
[2018-03-04 06:50] LABS: ALBUMIN 2.3 g/dL (3.4-5.0); ANION GAP 10.2 mmol/L (8-16); BILIRUBIN - TOTAL 1.21 mg/dL (0.2-1.3); CALCIUM 7.6 mg/dL (8.5-10.1); CARBON DIOXIDE 31.5 mmol/L (21.0-32.0); CREATININE - SERUM 1.5 mg/dL (0.6-1.3); POTASSIUM - SERUM 3.7 mmol/L (3.5-5.1); PROTEIN - SERUM 5.7 g/dL (6.4-8.2)
[2018-03-05] VITALS (24 sets, daily range): BP systolic 87–101; BP diastolic 55–69
[2018-03-05 04:35] LABS: HEMATOCRIT 26.9 % (42.0-54.0); HEMOGLOBIN 8.8 g/dL (13.5-17.5); MCHC 32.7 g/dL (31.0-37.0); MCV 88.8 fL (80.0-100.0); MEAN PLATELET VOLUME 12.4 fL (7.4-10.4); RBC 3.03 10x6/uL (4.20-6.10); RDW 14.5 % (11.5-14.5); WBC 12.8 10x3/uL (4.8-10.8)
[2018-03-05 04:46] LABS: ANION GAP 8.5 mmol/L (8-16); CALCIUM 7.5 mg/dL (8.5-10.1); CREATININE - SERUM 1.5 mg/dL (0.6-1.3); POTASSIUM - SERUM 3.5 mmol/L (3.5-5.1)
[2018-03-06] VITALS (24 sets, daily range): BP systolic 82–110; BP diastolic 30–69; Ht 193 cm; Wt 126.8 kg
[2018-03-06 07:56] LABS: HEMATOCRIT 27.8 % (42.0-54.0); HEMOGLOBIN 9.1 g/dL (13.5-17.5); MCH 29.3 pg (26.0-34.0); MCHC 32.7 g/dL (31.0-37.0); MCV 89.4 fL (80.0-100.0); RBC 3.11 10x6/uL (4.20-6.10); RDW 14.7 % (11.5-14.5); WBC 13.4 10x3/uL (4.8-10.8)
[2018-03-06 08:10] LABS: ANION GAP 14.1 mmol/L (8-16); CALCIUM 7.7 mg/dL (8.5-10.1); CARBON DIOXIDE 27.2 mmol/L (21.0-32.0); POTASSIUM - SERUM 4.3 mmol/L (3.5-5.1)
[2018-03-06 08:15] LABS: CREATININE - SERUM 1.9 mg/dL (0.6-1.3)
[2018-03-06 08:41] LABS: HELICOBACTER PYLORI IGG NEGATIVE (NEGATIVE)
[2018-03-07] VITALS (35 sets, daily range): BP systolic 80–94; BP diastolic 27–63
[2018-03-07 06:06] LABS: HEMATOCRIT 26.7 % (42.0-54.0); HEMOGLOBIN 8.7 g/dL (13.5-17.5); MCH 29.1 pg (26.0-34.0); MCHC 32.6 g/dL (31.0-37.0); MCV 89.3 fL (80.0-100.0); MEAN PLATELET VOLUME 12.7 fL (7.4-10.4); RBC 2.99 10x6/uL (4.20-6.10); RDW 14.7 % (11.5-14.5); WBC 14.8 10x3/uL (4.8-10.8)
[2018-03-07 06:49] LABS: ALBUMIN 2.3 g/dL (3.4-5.0); ANION GAP 20.8 mmol/L (8-16); BILIRUBIN - DIRECT 1.4 mg/dL (0.00-0.30); BILIRUBIN - INDIRECT 1.46 mg/dL (0.00-1.00); BILIRUBIN - TOTAL 2.86 mg/dL (0.2-1.3); CALCIUM 7.8 mg/dL (8.5-10.1); CARBON DIOXIDE 21.1 mmol/L (21.0-32.0); POTASSIUM - SERUM 4.9 mmol/L (3.5-5.1)
[2018-03-08] VITALS (24 sets, daily range): BP systolic 77–140; BP diastolic 51–67
[2018-03-08 06:14] LABS: HEMATOCRIT 24.6 % (42.0-54.0); HEMOGLOBIN 8.3 g/dL (13.5-17.5); MCH 29.5 pg (26.0-34.0); MCHC 33.7 g/dL (31.0-37.0); MCV 87.5 fL (80.0-100.0); MEAN PLATELET VOLUME 13.1 fL (7.4-10.4); RBC 2.81 10x6/uL (4.20-6.10); RDW 14.7 % (11.5-14.5); WBC 14.3 10x3/uL (4.8-10.8)
[2018-03-08 06:23] LABS: INR 1.52 (0.85-1.17); PROTIME 17.8 SECONDS (11.6-15.0)
[2018-03-08 06:37] LABS: ALBUMIN 2.3 g/dL (3.4-5.0); ANION GAP 18.6 mmol/L (8-16); BILIRUBIN - DIRECT 1.25 mg/dL (0.00-0.30); BILIRUBIN - INDIRECT 1.12 mg/dL (0.00-1.00); BILIRUBIN - TOTAL 2.37 mg/dL (0.2-1.3); CALCIUM 7.2 mg/dL (8.5-10.1); CARBON DIOXIDE 20.9 mmol/L (21.0-32.0); CREATININE - SERUM 3.1 mg/dL (0.6-1.3); POTASSIUM - SERUM 4.5 mmol/L (3.5-5.1); PROTEIN - SERUM 5.7 g/dL (6.4-8.2)
[2018-03-09] VITALS (24 sets, daily range): BP systolic 88–102; BP diastolic 53–71
[2018-03-09 03:24] LABS: APPEARANCE CLEAR (CLEAR); BILIRUBIN NEGATIVE (NEGATIVE); COLOR DK YELLOW (YELLOW); GLUCOSE NEGATIVE (NEGATIVE); KETONE NEGATIVE (NEGATIVE); NITRITE NEGATIVE (NEGATIVE); PROTEIN NEGATIVE (NEGATIVE); UROBILINOGEN NORMAL (NORMAL)
[2018-03-09 06:42] LABS: HEMATOCRIT 29.4 % (42.0-54.0); HEMOGLOBIN 9.8 g/dL (13.5-17.5); MCH 29.1 pg (26.0-34.0); MCHC 33.3 g/dL (31.0-37.0); MCV 87.2 fL (80.0-100.0); MEAN PLATELET VOLUME 13.2 fL (7.4-10.4); RBC 3.37 10x6/uL (4.20-6.10); RDW 14.9 % (11.5-14.5)
[2018-03-09 06:48] LABS: ANION GAP 19.5 mmol/L (8-16); CALCIUM 7.1 mg/dL (8.5-10.1); POTASSIUM - SERUM 4.5 mmol/L (3.5-5.1)
[2018-03-09 09:39] LABS: ALBUMIN 2.4 g/dL (3.4-5.0); BILIRUBIN - DIRECT 1.55 mg/dL (0.00-0.30); BILIRUBIN - INDIRECT 1.11 mg/dL (0.00-1.00); BILIRUBIN - TOTAL 2.66 mg/dL (0.2-1.3); PROTEIN - SERUM 5.7 g/dL (6.4-8.2)
[2018-03-09 10:15] LABS: ANA REFLEX - DIRECT Negative (Negative)
[2018-03-10] VITALS (27 sets, daily range): BP systolic 86–110; BP diastolic 50–76
[2018-03-10 07:30] LABS: HEPATITIS C ANTIBODY 0.1 (0.0-0.9)
[2018-03-10 08:14] LABS: BASOPHILS 0.1 % (0-2); EOSINOPHILS 0.1 % (0-7); HEMATOCRIT 27.8 % (42.0-54.0); IMMATURE GRANULOCYTES 0.8 % (0-5); LYMPHOCYTES 4.6 % (15-50); MCH 28.7 pg (26.0-34.0); MCHC 32.4 g/dL (31.0-37.0); MCV 88.5 fL (80.0-100.0); MEAN PLATELET VOLUME 12.7 fL (7.4-10.4); NEUTROPHILS 90.4 % (40-80); PLATELET COUNT 128 10x3/uL (130-400); RBC 3.14 10x6/uL (4.20-6.10); RDW 15.4 % (11.5-14.5); WBC 18.9 10x3/uL (4.8-10.8)
[2018-03-10 08:33] LABS: CALCIUM 7.1 mg/dL (8.5-10.1); CREATININE - SERUM 2.6 mg/dL (0.6-1.3)
[2018-03-11] VITALS (24 sets, daily range): BP systolic 95–107; BP diastolic 51–84
[2018-03-11 06:06] LABS: HEMATOCRIT 29.6 % (42.0-54.0); HEMOGLOBIN 9.4 g/dL (13.5-17.5); MCH 28.7 pg (26.0-34.0); MCHC 31.8 g/dL (31.0-37.0); MCV 90.5 fL (80.0-100.0); MEAN PLATELET VOLUME 12.7 fL (7.4-10.4); RBC 3.27 10x6/uL (4.20-6.10); RDW 15.7 % (11.5-14.5); WBC 21.9 10x3/uL (4.8-10.8)
[2018-03-11 06:08] LABS: ALBUMIN 2.1 g/dL (3.4-5.0); BILIRUBIN - DIRECT 2.06 mg/dL (0.00-0.30); BILIRUBIN - INDIRECT 1.09 mg/dL (0.00-1.00); BILIRUBIN - TOTAL 3.15 mg/dL (0.2-1.3); CALCIUM 7.2 mg/dL (8.5-10.1); CREATININE - SERUM 2.1 mg/dL (0.6-1.3); PROTEIN - SERUM 5.3 g/dL (6.4-8.2)
[2018-03-11 06:18] LABS: ANION GAP 21.4 mmol/L (8-16); CARBON DIOXIDE 17.6 mmol/L (21.0-32.0)
[2018-03-12] VITALS (24 sets, daily range): BP systolic 85–111; BP diastolic 53–66
[2018-03-12 06:45] LABS: HEMATOCRIT 27.7 % (42.0-54.0); HEMOGLOBIN 8.9 g/dL (13.5-17.5); MCH 28.5 pg (26.0-34.0); MCHC 32.1 g/dL (31.0-37.0); MCV 88.8 fL (80.0-100.0); MEAN PLATELET VOLUME 11.8 fL (7.4-10.4); RBC 3.12 10x6/uL (4.20-6.10); RDW 15.9 % (11.5-14.5); WBC 14.7 10x3/uL (4.8-10.8)
[2018-03-12 07:05] LABS: ANION GAP 14.2 mmol/L (8-16); CALCIUM 7.2 mg/dL (8.5-10.1); CREATININE - SERUM 2.1 mg/dL (0.6-1.3)
[2018-03-12 07:06] LABS: CARBON DIOXIDE 22.8 mmol/L (21.0-32.0)
[2018-03-13] VITALS (17 sets, daily range): BP systolic 88–105; BP diastolic 48–72
[2018-03-13 05:56] LABS: HEMATOCRIT 28.6 % (42.0-54.0); HEMOGLOBIN 9.1 g/dL (13.5-17.5); MCH 28.3 pg (26.0-34.0); MCHC 31.8 g/dL (31.0-37.0); MCV 89.1 fL (80.0-100.0); MEAN PLATELET VOLUME 11.9 fL (7.4-10.4); RBC 3.21 10x6/uL (4.20-6.10); RDW 15.7 % (11.5-14.5); WBC 18.8 10x3/uL (4.8-10.8)
[2018-03-13 06:04] LABS: ALBUMIN 1.9 g/dL (3.4-5.0); ANION GAP 17.1 mmol/L (8-16); BILIRUBIN - DIRECT 2.07 mg/dL (0.00-0.30); BILIRUBIN - INDIRECT 0.53 mg/dL (0.00-1.00); BILIRUBIN - TOTAL 2.6 mg/dL (0.2-1.3); CALCIUM 7.3 mg/dL (8.5-10.1); POTASSIUM - SERUM 4.1 mmol/L (3.5-5.1); PROTEIN - SERUM 5.5 g/dL (6.4-8.2)
[2018-03-13] MEDS ORDERED: ALBUTEROL2.5 MG/3 M UPD (14:45)
[2018-03-13] MEDS ORDERED: Levaquin PREMIX IV (14:45)
[2018-03-13] MEDS ORDERED: LOVENOX40 MG/0.4 SC (14:47)
[2018-03-13] MEDS ORDERED: ALDACTONE25 MG PO (14:47)
[2018-03-13] MEDS ORDERED: PLAVIX75 MG PO (14:47)
[2018-03-13] MEDS ORDERED: TYLENOL650 MG RC (14:48)
[2018-03-13] MEDS ORDERED: ACETAMINOPHEN325 MG PO (14:48)
[2018-03-13] MEDS ORDERED: ONDANSETRON4 MG/2 M3 IV (14:49)
[2018-03-13] MEDS ORDERED: MIRALAX17 GM PO (14:49)
[2018-03-13] MEDS ORDERED: PEPCID20 MG PO (14:49)
[2018-03-13] MEDS ORDERED: COLACE100 MG PO (14:49)
[2018-03-13] MEDS ORDERED: FLORAJEN3 CAPS460 MG PO (14:49)
[2018-03-13] MEDS ORDERED: REGLAN INJ10 MG/2 ML IV (14:49)
[2018-03-13] MEDS ORDERED: CARAFATE1 G/10 ML PO (14:50)
== END 2018-03-13 16:05 | disposition short-term general hospital (02) | DRG 233 ==
LOC: D.SDCHOLD 07:24 → D.CVICU 02-27 05:00 → D.SDCHOLD 02-27 10:00 → D.CVICU 02-27 13:09
PROVIDERS: Emergency Medicine; Family Medicine; Internal Medicine Cardiovascular Disease; Internal Medicine Gastroenterology; Thoracic Surgery (Cardiothoracic Vascular Surgery)
PROC: 06BP0ZZ Excision of Right Saphenous Vein, Open Approach (ICD-10-PCS; 2018-02-27)
PROC: 5A1221Z Performance of Cardiac Output, Continuous (ICD-10-PCS; 2018-02-27)
PROC: B24BZZ4 Ultrasonography of Heart with Aorta, Transesophageal (ICD-10-PCS; 2018-02-27)
PROC: 021209W Bypass Coronary Artery, Three Arteries from Aorta with Autologous Venous Tissue, Open Approach (ICD-10-PCS; principal; 2018-02-27 07:30)
PROC: B2111ZZ Fluoroscopy of Multiple Coronary Arteries using Low Osmolar Contrast (ICD-10-PCS; 2018-03-10)
PROC: B2151ZZ Fluoroscopy of Left Heart using Low Osmolar Contrast (ICD-10-PCS; 2018-03-10)
PROC: 4A023N7 Measurement of Cardiac Sampling and Pressure, Left Heart, Percutaneous Approach (ICD-10-PCS; 2018-03-10)
DX: I25.119 Atherosclerotic heart disease of native coronary artery with unspecified angina pectoris (principal); I50.21 Acute systolic (congestive) heart failure; D62 Acute posthemorrhagic anemia; G72.81 Critical illness myopathy; N17.9 Acute kidney failure, unspecified; E87.1 Hypo-osmolality and hyponatremia; I25.5 Ischemic cardiomyopathy; I87.2 Venous insufficiency (chronic) (peripheral); R00.0 Tachycardia, unspecified; E03.9 Hypothyroidism, unspecified; R55 Syncope and collapse; Z87.891 Personal history of nicotine dependence; I50.9 Heart failure, unspecified; D72.829 Elevated white blood cell count, unspecified; R79.89 Other specified abnormal findings of blood chemistry; I95.9 Hypotension, unspecified; I73.00 Raynaud's syndrome without gangrene; R11.2 Nausea with vomiting, unspecified; R23.0 Cyanosis